=== PATIENT | male | born 1960 | race Caucasian/White ===

== ENCOUNTER 2018-02-07 13:32 | Outpatient (CLI) | payer OTHER | END 2018-02-07 20:17 | disposition home or self-care (01) | LOC: SCT 13:32 | PROVIDERS: ATTEND Otolaryngology | DX: J34.2 Deviated nasal septum (principal); J33.9 Nasal polyp, unspecified; Z98.890 Other specified postprocedural states | CPT/HCPCS: 70486-TC ==